=== PATIENT | male | born 1960 | race Caucasian/White ===

== ENCOUNTER 2024-01-12 12:50 | Emergency (ER) | payer SELFPAY ==
[2024-01-12 12:53] VITALS: BP 144/90
--- NOTE | 2024-01-12 13:22 | ED.GENMED ---
History of Present Illness
General
Chief Complaint: Musculo-Skeletal Complaint
Source: patient
Exam Limitations: none
Time Seen by Provider: 01/12/24 13:06
Nursing documentation reviewed up to this point in time: agreed with
History of Present Illness
History of Present Illness:
Patient is a 63-year-old male who presents to the ER complaining left shoulder pain. Patient was lifting an air conditioner out of a window and felt and heard a cracking crunching sensation in his left shoulder. He shoulder problems typically as
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
He did take ibuprofen prior to arrival. No other injuries.
Past History
Past History
ED Past Medical History: None
ED Past Surgical History: None
Social History
Tobacco: Non-smoker
Review of Systems
Review of Systems
Allergies reviewed?: Yes
All Other Systems: ROS reviewed and negative except as documented in HPI and ROS
Constitutional: Reports no symptoms
Musculoskeletal: Reports other (left)
Skin: Reports no symptoms
Neurological: Reports no symptoms
Psychiatric: Reports no symptoms
Phy Exam
General Physical Exam
General Presentation: no apparent distress
General age: appears stated age
General Skin: warm and dry
General Habitus: normal
General Mental: alert
Musculoskeletal Exam
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
Skin Exam
Skin Exam: normal color and warm/dry
Psychiatric Exam
Psychiatric Exam: normal mood/affect
Course
Orders/Labs/Results
Orders:
Orders
01/12/24 13:21
Shoulder, Left, Trauma CR [CR Shoulder, Trauma - Left] Urgent
Comment:
Reason For Exam: trauma
Vital Signs
Initial and Last Documented VS:
Initial Vital Signs
Temp Pulse Resp BP Pulse Ox
97.8 F 68 18 144/90 98
01/12/24 12:53 01/12/24 12:53 01/12/24 12:53 01/12/24 12:53 01/12/24 12:53
Last Documented Vital Signs
Temp Pulse Resp BP Pulse Ox
97.8 F 68 18 144/90 98
01/12/24 12:53 01/12/24 12:53 01/12/24 12:53 01/12/24 12:53 01/12/24 12:53
*Radiology
Radiology exam reviewed: radiology read reviewed
*Critical Care Note
Total Time (30-74mins, 75-104mins- exclusive of procedures): Not Applicable
ED Attending Note
-
Portions of this chart may have been created with voice recognition software.� Occasional wrong word or��sound alike� substitutions may have occurred due to the inherent limitations of voice recognition software.
Discharge Plan
Departure
Patient Disposition: Home (Routine Discharge)
Date of Disposition: 01/12/24
Time of Disposition: 14:11
Patient with high blood pressure during this ER visit?: Yes
Condition: Fair
Covid-19: Not Applicable
Discharge Problem:
Left shoulder strain
Instructions: Using Cold for Pain, Shoulder Pain ED, BLOOD PRESSURE
Referrals:
Greg Whitaker PA-C [Family Provider] -
Markie Foster MD [Active] -
Activity Restrictions/Additional Instructions:
As discussed ice to the affected area for the next 24 to 48 hours 20 minutes at a time several times a day. You may take ibuprofen every 8 hours with food. Follow-up with orthopedics in the next 1 days please call today to make an appointment as
soon as possible. Avoid heavy lifting for the next several days until you are seen by orthopedics. Return if any worsening of symptoms.
Interventions
Interventions:
*Risk Screen - Suicide Last Done: 01/12/24 12:53
*General Assessment Last Done: 01/12/24 12:53
*Neglect/Abuse Screening Last Done: 01/12/24 12:53
ED-Musculoskeletal Assessment Last Done: 01/12/24 13:31
Discharge Date and Time
Print Language: K[place]
== END 2024-01-12 14:28 | disposition home or self-care (01) ==
LOC: EMR 12:50
PROVIDERS: EMERGENCY PHYSICIAN Emergency Medicine; FAMILY PHYSICIAN Physician Assistant Medical
DX: S46.912A Strain of unspecified muscle, fascia and tendon at shoulder and upper arm level, left arm, initial encounter (principal); X50.0XXA Overexertion from strenuous movement or load, initial encounter
CPT/HCPCS: 99283; 73030

== ENCOUNTER 2024-01-31 13:08 | Emergency (ER) | payer SELFPAY ==
[2024-01-31 13:14] VITALS: BP 153/96
--- NOTE | 2024-01-31 14:19 | ED.GENMED ---
History of Present Illness
General
Chief Complaint: Skin Surface Trauma
Time Seen by Provider: 01/31/24 13:32
History of Present Illness
History of Present Illness:
63-year-old male presents to the emergency department for evaluation of a right facial laceration, tripped and fell while working and struck his face against a piece of metal. There is a 4 cm curvilinear laceration along the left maxillary/nasal
fold, last tetanus was 2 years ago
Past History
Past History
ED Past Medical History: None
ED Past Surgical History: None
Social History
Tobacco: Non-smoker
Review of Systems
Review of Systems
Allergies reviewed?: Yes
All Other Systems: ROS reviewed and negative except as documented in HPI and ROS
Phy Exam
Physical Exam
Physical Exam:
GEN: Well appearing, NAD, WDWN
HEENT: Oral mucosa moist, no scleral icterus. 4 cm curvilinear laceration to the right nasal/maxillary fold
Cardiac: Regular rate
Lung: No respiratory distress, no tachypnea
MSK: No gross deformity or injuries
Skin: Good color, no pallor or jaundice, no rashes
Neuro: AO x3, moves all extremities freely
Psych: Calm, cooperative
Course
Vital Signs
Initial and Last Documented VS:
Initial Vital Signs
Temp Pulse Resp BP Pulse Ox
98.4 F 98 16 153/96 99
01/31/24 13:14 01/31/24 13:14 01/31/24 13:14 01/31/24 13:14 01/31/24 13:14
Last Documented Vital Signs
Temp Pulse Resp BP Pulse Ox
98.4 F 98 16 153/96 99
01/31/24 13:14 01/31/24 13:14 01/31/24 13:14 01/31/24 13:14 01/31/24 13:14
Procedures
Laceration Closure
Right Face:
Status of Wound: clean
Size of Wound in cm: 4
Description of Wound Edges: sharp
Preparation: cleaned with saline
Anesthesia: 1% Lidocaine with epi
Revision/Debridement: irrigate-direct pressure
Wound exploration: explored to base- no FB
Type of Closure: layered closure
Skin Closure Material: 5-0 chromic gut
Number of sutures: 6
Additional information:
6 5-0 subcuticular sutures placed with good approximation, superficial glue applied
MDM/Problems Addressed
MDM/Problems Addressed:
Good wound approximation achieved, discussed supportive care at home
*Critical Care Note
Total Time (30-74mins, 75-104mins- exclusive of procedures): Not Applicable
ED Attending Note
-
Portions of this chart may have been created with voice recognition software.� Occasional wrong word or��sound alike� substitutions may have occurred due to the inherent limitations of voice recognition software.
Discharge Plan
Departure
Patient Disposition: Home (Routine Discharge)
Date of Disposition: 01/31/24
Time of Disposition: 14:19
Patient with high blood pressure during this ER visit?: Yes
Discharge Problem:
Face lacerations
Instructions: Laceration Repair With Glue (DC)
Activity Restrictions/Additional Instructions:
Keep dry until this evening, then you may gently wash the face
Avoid scrubbing the glue or apply soap directly to it
Do NOT use any ointments such as Neosporin or vaseline, as this will degrade the glue
Interventions
Interventions:
*Risk Screen - Suicide Last Done: 01/31/24 14:00
*General Assessment Last Done: 01/31/24 14:00
*Neglect/Abuse Screening Last Done: 01/31/24 14:00
*ED COVID-19 Vaccine History Last Done: 01/31/24 14:00
*Nursing Disposition Last Done: 01/31/24 14:43
ED-Skin Assessment Last Done: 01/31/24 14:00
Discharge Date and Time
Discharge Date/Time: 01/31/24 14:43
Print Language: DANISH
== END 2024-01-31 14:43 | disposition home or self-care (01) ==
LOC: EMR 13:08
PROVIDERS: EMERGENCY PHYSICIAN Emergency Medicine
DX: S01.81XA Laceration without foreign body of other part of head, initial encounter (principal); W01.198A Fall on same level from slipping, tripping and stumbling with subsequent striking against other object, initial encounter; Y93.89 Activity, other specified; Y92.89 Other specified places as the place of occurrence of the external cause; Y99.0 Civilian activity done for income or pay; R03.0 Elevated blood-pressure reading, without diagnosis of hypertension
CPT/HCPCS: 12052; 99282

== ENCOUNTER → 2025-01-05 06:37 | Outpatient (REF) | payer OTHER, SELFPAY | LOC: RAD 06:37 | PROVIDERS: ATTENDING PHYSICIAN Physician Assistant; FAMILY PHYSICIAN Physician Assistant Medical; REFERRING PHYSICIAN Specialist | DX: M19.012 Primary osteoarthritis, left shoulder (principal); M19.011 Primary osteoarthritis, right shoulder; Z13.5 Encounter for screening for eye and ear disorders | CPT/HCPCS: 70030; 73221 ==